=== PATIENT | female | born 1960 | race Caucasian/White ===

== ENCOUNTER 2017-01-04 08:27 | Inpatient (IN) | payer OTHER ==
[2017-01-04] VITALS (9 sets, daily range): BP systolic 107–146; BP diastolic 53–102; PULSE 70–102; RESP 12–18; Ht 154.9 cm; Wt 83.2 kg
[~2017-01-04] VITALS: Ht 154.9 cm; Wt 83.2 kg
[~2017-01-04 08:27] MED LIST: CEFAZOLIN 1 GM INJ ONE; CEFAZOLIN 2 GM/50 ML (PMX) 50 ML IVPB SCH; SOD CHLORIDE 0.9% 1,000 ML IV SCH
[2017-01-04] MEDS ORDERED: AMLO-145 PO (09:29)
[2017-01-04] MEDS ORDERED: PRA20 PO (09:29)
[2017-01-04] MEDS ORDERED: CITA20TA6 PO (09:29)
[2017-01-04] MEDS ORDERED: LISI10TA2 PO (09:29)
[2017-01-04] MEDS ORDERED: BUPIVACAINE 0.25% (MPF) 30 ML INJ ONE (11:05)
[2017-01-04] MEDS ORDERED: MIDAZOLAM 1 MG/ML 2 ML INJ ONE (11:20)
[2017-01-04] MEDS ORDERED: MEPERIDINE 25 MG INJ IV PRN (12:00)
[2017-01-04] MEDS ORDERED: morphine (1 MG/ML) 10ML SYRINGE IV PRN (12:00)
[2017-01-04] MEDS ORDERED: FENTAnyl 50 MCG/ML VIAL IV PRN (12:00)
[2017-01-04] MEDS ORDERED: DIPHENHYDRAMINE 50 MG INJ IV PRN (12:00)
[2017-01-04] MEDS ORDERED: ONDANSETRON 4 MG INJ IV PRN ×2 (12:00→20:30)
[2017-01-04] MEDS ORDERED: ROCURONIUM 50 MG INJ ONE (12:36)
[2017-01-04] MEDS ORDERED: GLYCOPYRROLATE 0.4 MG INJ ONE (12:36)
[2017-01-04] MEDS ORDERED: PROPOFOL 20 ML ONE (12:36)
[2017-01-04] MEDS ORDERED: LIDOCAINE 2% (SDV) 5 ML INJ ONE (12:36)
[2017-01-04] MEDS ORDERED: ONDANSETRON 4 MG INJ ONE (12:37)
[2017-01-04] MEDS ORDERED: NEOSTIGMINE 3 MG/3 ML SYRINGE ONE (12:37)
[2017-01-04] MEDS ORDERED: CEFAZOLIN 2 GM/50 ML (PMX) 50 ML IVPB SCH ×2 (13:00→17:30)
--- NOTE | 2017-01-04 13:26 | OPR ---
DATE OF OPERATION: 01/04/2017 INDICATION: This is a 56-year-old female with symptomatic gallstones. She requests surgical excisi on of her gallbladder. Risks, alternatives, benefits, and personnel were discussed with the patient . The patient expressed understanding and consents to the operation. PREOPERATIVE DIAGNOSIS: Symptomatic gallstones. POSTOPERATIVE DIAGNOSIS: Symptomatic gallstones. OPERATION: Laparoscopic cholecystectomy. SURGEON: Anuja Hendrix MD CASING CREW PUSHER: Simba Guzman MD SPECIMENS: Gallbladder. COMPLICATIONS: None. ANESTHESIA: General. DESCRIPTION OF PROCEDURE: The patient was taken to the OR and prepped and draped in the usual steri le fashion. A surgical time out was performed. IV antibiotics were given. Infraumbilical transver se incision is made with a 15 blade. Dissection cautery was carried down to the fascia which was op ened with a curved Sandoval scissors, 0 Vicryl U-stitch was placed into the fascia. Balloon and Marii trocar were introduced. Pneumoperitoneum was established. Midepigastric 10 mm optical trocar and r ight upper quadrant and right upper flank 5 mm optical trocars placed under direct visualization. U liya initial inspection, there were multiple adhesions to the gallbladder which were taken down blunt ly. The cystic duct was identified. The critical view was established. The cystic duct and cystic artery are divided using multiple fires of the 35 mm [place] vascular load stapler. The gallbladde r was taken off the gallbladder bed. There was good hemostasis. Surgicel snow was used to augment hemostasis. Gallbladder was retrieved using EndoCatch bag. Ports were removed under direct visuali zation. The 0 Vicryl U-stitch was tied down. Skin was closed using skin brayden. Local anesthesia was injected. Dry dressings were applied. Dictated By: ANUJA HENDRIX MD SB/DONTE Conf#: [id number] DID#: [id number]
[2017-01-04] MEDS: morphine 2 MG INJ IV PRN ×3 (14:46→22:54)
[2017-01-04] MEDS ORDERED: HYDROmorphONE 1 MG/ML SYG IV STA (15:29)
[2017-01-04 16:29] LABS: ADD SCAN DIFF NO
[2017-01-04 16:32] LABS: BASOPHILS % 0.2 % (0.0-2.0); EOSINOPHILS % 0.3 % (0.0-7.0); HEMATOCRIT 37.4 % (37.0-47.0); HEMOGLOBIN 12.1 g/dl (12.0-16.0); LYMPHOCYTES # 1.3 10^3/ul (0.8-2.9); LYMPHOCYTES % 10.1 % (15.0-51.0); MEAN CORPUSCULAR HEMOGLOBIN 31.7 pg (29.0-33.0); MEAN CORPUSCULAR HGB CONC 32.4 g/dl (32.0-37.0); MEAN CORPUSCULAR VOLUME 97.9 fl (82.0-101.0); MEAN PLATELET VOLUME 9.9 fl (7.4-10.4); MONOCYTE # 0.5 10^3/ul (0.3-0.9); MONOCYTES % 3.8 % (0.0-11.0); NEUTROPHIL # 11.2 10^3/ul (1.6-7.5); PLATELET COUNT 183 10^3/UL (140-415); RED BLOOD COUNT 3.82 10^6/ul (4.20-5.40); RED CELL DISTRIBUTION WIDTH 13.2 % (11.5-14.5); WHITE BLOOD COUNT 13.2 10^3/ul (4.8-10.8)
[2017-01-04 16:43] LABS: ALBUMIN 3.4 g/dl (3.3-4.9); POTASSIUM 3.8 mmol/L (3.5-5.1)
[2017-01-04 16:45] LABS: CREATININE 0.65 mg/dl (0.44-1.00)
[2017-01-04 16:46] LABS: ALBUMIN/GLOBULIN RATIO 1.21; TOTAL PROTEIN 6.2 g/dl (6.1-8.1)
--- NOTE | 2017-01-04 16:46 | HP ---
DATE OF ADMISSION: 01/04/2017 HISTORY OF PRESENT ILLNESS: The patient is a 56-year-old female with past medical history positive for hypertension, hyperlipidemia, and depression. The patient had symptomatic gallstones. She was evaluated by Dr. Hendrix in general surgery consultation who requested surgical incision of the gallblad zach. The patient was brought to the hospital and underwent laparoscopic cholecystectomy. Postopera tively, the patient experienced significant pain, and the patient is admitted for further evaluation and management to medical/surgical floor. There is no nausea or vomiting and no fever reported. PAST MEDICAL HISTORY: Positive for hypertension, hyperlipidemia, and depression. PAST SURGICAL HISTORY: The patient is status post x2 many years ago. FAMILY HISTORY: Noncontributory. SOCIAL HISTORY: The patient lives at home with her family. The patient denies any tobacco use, den ies any alcohol use, and denies any illicit drug use. ALLERGIES: NO KNOWN ALLERGIES. MEDICATIONS ON ADMISSION: 1. Amlodipine 5 mg p.o. daily. 2. Lisinopril 10 mg p.o. daily. 3. Pravastatin 20 mg p.o. daily. 4. Citalopram 20 mg p.o. daily. REVIEW OF SYSTEMS: A 12-point review of systems is negative unless what mentioned in the HPI. PHYSICAL ASSESSMENT: GENERAL: Well-developed, obese female who currently is awake, alert. VITAL SIGNS: Temperature is 97.4, pulse is 73, blood pressure 135/74, respiratory rate 18, oxygen s aturation 99% on 2 liters nasal cannula. HEENT: Head is atraumatic, normocephalic. Pupils equal, round, reactive to light and accommodation . Oral mucosa is pink and moist. NECK: Supple, no cervical lymphadenopathy, no thyromegaly. CHEST: Lungs clear bilaterally. There are no rhonchi, wheezes, rales noted. CARDIOVASCULAR: Normal S1, S2. No murmurs, gallops, clicks, rubs noted. ABDOMEN: Protuberant, soft, status post surgery with laparoscopic surgical incision intact with ban dages. EXTREMITIES: No edema, clubbing, cyanosis. Pulses equal bilaterally 2+. SKIN: There is no rash or petechiae noted. NEUROLOGICAL: The patient is lethargic but easily arousable. Alert and oriented x3. No focal defi cits noted. Motor strength 5/5 in all extremities. LABORATORY DATA: On admission, basic metabolic panel shows glucose 99, BUN is 17, creatinine 0.79. Sodium 143, potassium 4.6, chloride 106, carbon dioxide 28, calcium 9.6. PTT is 26. INR is 1. PT 9.9. CBC: White blood cells 9.3, hemoglobin is 13.5, hematocrit 38.9, platelets 218. ASSESSMENT AND PLAN: 1. Symptomatic gallstones, status post laparoscopic cholecystectomy. Continue to follow up surgica l recommendations. Continue Tylenol and morphine for pain and Zofran p.r.n. for nausea. The patien t is continued on antibiotics and IV fluids. Monitor electrolytes. Advance diet per surgery. Nubia ntive spirometer q. 1 hour while the patient is awake. 2. Hypertension. We will resume patient's home medication, lisinopril and Norvasc. 3. Hyperlipidemia. Continue Pravachol. 4. Depression. Continue Citalopram. 5. We will continue sequential compression device for deep venous thrombosis prophylaxis. Further recommendations based on clinical course. Plan of care discussed with Dr. Ledesma. Dictated By: AYESHA OREILLY REHABILITATION ASSISTANT for MING LEDESMA MD SR/NTS Conf#: [id number] DID#: [id number]
[2017-01-04 16:47] LABS: CALCIUM 8.2 mg/dl (8.4-10.2)
[2017-01-04] MEDS: CEFAZOLIN 2 GM/50 ML (PMX) 50 ML IVPB SCH (17:38)
[2017-01-04] MEDS: LACTATED RINGER'S 1,000 ML IV SCH ×3 (17:38→22:40)
[2017-01-04] MEDS: HYDROCODONE/APAP (5/325) TAB PO PRN (19:13)
[2017-01-05 00:26] VITALS: RESP 19
[2017-01-05 00:28] VITALS: BP 147/70; PULSE 86
[2017-01-05] MEDS: morphine 2 MG INJ IV PRN ×8 (00:46→20:28)
[2017-01-05] MEDS: CEFAZOLIN 2 GM/50 ML (PMX) 50 ML IVPB SCH ×3 (01:43→11:36)
[2017-01-05] MEDS: HYDROCODONE/APAP (5/325) TAB PO PRN ×3 (04:17→19:28)
[2017-01-05 05:46] LABS: ADD SCAN DIFF NO
[2017-01-05 05:54] LABS: BASOPHILS % 0.2 % (0.0-2.0); HEMATOCRIT 34.5 % (37.0-47.0); HEMOGLOBIN 11.2 g/dl (12.0-16.0); LYMPHOCYTES # 1.4 10^3/ul (0.8-2.9); LYMPHOCYTES % 12.5 % (15.0-51.0); MEAN CORPUSCULAR HEMOGLOBIN 31.5 pg (29.0-33.0); MEAN CORPUSCULAR HGB CONC 32.5 g/dl (32.0-37.0); MEAN CORPUSCULAR VOLUME 97.2 fl (82.0-101.0); MEAN PLATELET VOLUME 10.1 fl (7.4-10.4); MONOCYTE # 0.4 10^3/ul (0.3-0.9); MONOCYTES % 3.5 % (0.0-11.0); NEUTROPHIL # 9.4 10^3/ul (1.6-7.5); NEUTROPHILS % 83.4 % (39.0-77.0); PLATELET COUNT 181 10^3/UL (140-415); RED BLOOD COUNT 3.55 10^6/ul (4.20-5.40); RED CELL DISTRIBUTION WIDTH 13.2 % (11.5-14.5); WHITE BLOOD COUNT 11.3 10^3/ul (4.8-10.8)
[2017-01-05] MEDS: LACTATED RINGER'S 1,000 ML IV SCH ×4 (06:22→18:40)
[2017-01-05 06:52] LABS: ALBUMIN 3.3 g/dl (3.3-4.9)
[2017-01-05 06:53] LABS: POTASSIUM 4.3 mmol/L (3.5-5.1)
[2017-01-05 06:55] LABS: BILIRUBIN,INDIRECT 0.1 mg/dl (0-1.1); BILIRUBIN,TOTAL 0.1 mg/dl (0.2-1.3); CREATININE 0.66 mg/dl (0.44-1.00)
[2017-01-05 06:56] LABS: ALBUMIN/GLOBULIN RATIO 1.22; CALCIUM 8.3 mg/dl (8.4-10.2)
[2017-01-05 07:43] VITALS: BP 104/53; RESP 16
[2017-01-05] MEDS ORDERED: NON-FORMULARY/PATIENT OWN MED (Pravastatin Sodium 20 MG) PO SCH (09:00)
[2017-01-05] MEDS: AMLODIPINE 5 MG TAB PO SCH (09:00)
[2017-01-05] MEDS: CITALOPRAM 20 MG TAB PO SCH (09:00)
[2017-01-05] MEDS: LISINOPRIL 10 MG TAB PO SCH (09:00)
[2017-01-05] MEDS: ATORVASTATIN 10 MG TAB PO SCH (09:55)
--- NOTE | 2017-01-05 11:39 | PN ---
Date/Time of Note Date/Time of Note DATE: 01/05/17 TIME: 11:38 Assessment/Plan VTE Prophylaxis VTE Prophylaxis Intervention: SCD's Lines/Catheters IV Catheter Type (from Nrs): Peripheral IV Urinary Cath still in place: No Assessment/Plan Assessment/Plan 1. Symptomatic gallstones, status post laparoscopic cholecystectomy. Continue to follow up surgical recommendations. Continue Tylenol and morphine for pain and Zofran p.r.n. for nausea. The patient is continued on antibiotics and IV fluids. Monitor electrolytes. Advance diet per surgery. Incentive spirometer q. 1 hour while the patient is awake. 2. Hypertension. We will resume patient's home medication, lisinopril and Norvasc. 3. Hyperlipidemia. Continue Pravachol. 4. Depression. Continue Citalopram. 5. We will continue sequential compression device for deep venous thrombosis prophylaxis. Further recommendations based on clinical course. Plan of care discussed with Dr. Ledesma. Subjective 24 Hr Interval Summary Constitutional: requiring O2 Eyes: no complaints ENT: no complaints Respiratory: no complaints Cardiovascular: no complaints Gastrointestinal: pain Genitourinary: no complaints Musculoskeletal: no complaints Skin: other Neurologic: no complaints Endocrine: no complaints Lymphatic: no complaints Immunologic: no complaints Exam/Review of Systems Vital Signs Vitals Vital Signs Date Time Temp Pulse Resp B/P Pulse Ox O2 Delivery O2 Flow Rate FiO2 01/05/17 07:43 98.5 69 16 104/53 98 01/05/17 00:26 Nasal Cannula 2.0 Intake and Output 01/04/17 01/04/17 01/05/17 15:00 23:00 07:00 Intake Total 1000 ml 50 ml 1050 ml Output Total 300 ml 50 ml 300 ml Balance 700 ml 0 ml 750 ml Exam Constitutional: alert, oriented, well developed Head: atraumatic Eyes: EOMI, PERRL, nl sclera ENMT: nl external ears & nose Neck: non-tender Respiratory: clear to auscultation Cardiovascular: nl pulses Gastrointestinal: non-tender, other (incional pain, DDI), soft Neurological: nl mental status, nl speech Skin: other Results Result Diagram: 01/05/17 0459 01/05/17 0459 Results 24 hrs Laboratory Tests Test 01/04/17 15:50 01/05/17 04:59 Alanine Aminotransferase (ALT/SGPT) 83 H 306 H Albumin 3.4 3.3 Albumin/Globulin Ratio 1.21 1.22 Alkaline Phosphatase 66 85 Anion Gap 16 12 Aspartate Amino Transf (AST/SGOT) 106 H 275 H Basophils # 0.0 0.0 Basophils % 0.2 0.2 Blood Urea Nitrogen 17 13 Calcium Level 8.2 L 8.3 L Carbon Dioxide Level 23 28 Chloride Level 109 105 Creatinine 0.65 0.66 Direct Bilirubin 0.00 0.00 Eosinophils # 0.0 0.0 Eosinophils % 0.3 0.0 Globulin 2.80 2.70 Glucose Level 139 129 Hematocrit 37.4 34.5 L Hemoglobin 12.1 11.2 L Indirect Bilirubin 0.0 0.1 Lymphocytes # 1.3 1.4 Lymphocytes % 10.1 L 12.5 L Mean Corpuscular Hemoglobin 31.7 31.5 Mean Corpuscular Hemoglobin Concent 32.4 32.5 Mean Corpuscular Volume 97.9 97.2 Mean Platelet Volume 9.9 10.1 Monocytes # 0.5 0.4 Monocytes % 3.8 3.5 Neutrophils # 11.2 H 9.4 H Neutrophils % 85.0 H 83.4 H Nucleated Red Blood Cells # 0.0 0.0 Nucleated Red Blood Cells % 0.0 0.0 Platelet Count 183 181 Potassium Level 3.8 4.3 Red Blood Count 3.82 L 3.55 L Red Cell Distribution Width 13.2 13.2 Sodium Level 144 141 Total Bilirubin 0.0 L 0.1 L Total Protein 6.2 6.0 L White Blood Count 13.2 H 11.3 H Medications Medications Current Medications Morphine Sulfate (morphine) 2 mg Q2H PRN IV PAIN LEVEL 6-10 Last administered on 01/05/17 08:41; Admin Dose 2 MG; Start 01/04/17 at 13:00 Acetaminophen/ Hydrocodone Bitart 1 tab 1 tab Q6H PRN PO PAIN LEVEL 6-10 Last administered on 01/05/17 10:22; Admin Dose 1 TAB; Start 01/04/17 at 13:00 Lactated Ringer's (Lr) 1,000 ml @ 100 mls/hr Q10H IV Last administered on 01/05 06:22; Admin Dose 100 MLS/HR; Start 01/04/17 at 12:40 Amlodipine Besylate (Norvasc) 5 mg DAILY PO ; Start 01/05/17 at 09:00 Citalopram Hydrobromide (Celexa) 20 mg DAILY PO ; Start 01/05/17 at 09:00 Lisinopril (Zestril) 10 mg DAILY PO ; Start 01/05/17 at 09:00 Atorvastatin Calcium 10 mg 10 mg DAILY PO Last administered on 01/05/17 09:55 ; Admin Dose 10 MG; Start 01/05/17 at 09:00 Cefazolin Sodium/ Dextrose (Ancef 2 Gm/50 ml (Pmx)) 50 ml @ 100 mls/hr Q8H IVPB Last administered on 01/05/17 01:43; Admin Dose 100 MLS/HR; Start at 17:30; Stop 01/05/17 at 17:29 Ondansetron HCl (Zofran Inj) 4 mg Q4H PRN IV NAUSEA AND/OR VOMITING; Start 08/13 at 20:30 JUDY MARTÍNEZ Jan 05, 2017 11:39
--- NOTE | 2017-01-05 14:27 | PN ---
DATE: 01/05/2017 Postop day #1. SUBJECTIVE: Complains of too much abdominal pain. She is getting morphine every 2 to 3 hours aroun d the clock. No vomiting. No flatus. Has not been out of bed, she is in bed. OBJECTIVE: VITAL SIGNS: Temperature 98.5, pulse rate 69 to 86, respirations 18 to 16, blood pressure 147/70 an d 104/53, saturation 98% on 2 liters nasal cannula. ABDOMEN: Upper part of the abdomen especially in the epigastric area and left and right upper quadr ants very distended with gas. Bowel sounds in lower abdomen are 3+, upper abdomen is absent. LOWER EXTREMITIES: No pitting edema, no calf tenderness. Sequential compression devices around the legs. LABORATORY DATA: WBC 11,300, hemoglobin 11.2, hematocrit 34.5, neutrophils 83%, elevated. Chemistr y: BUN and creatinine are normal. Sodium and potassium are normal. Total bilirubin is 0.1. AST el evated 275, ALT elevated 306. ASSESSMENT: 1. Postop day #1. The patient has too much pain. 2. Does not have any appetite. 3. The abdomen is very distended, appears to be distended with gas. I am not sure if this is in th e transverse colon or is in the stomach. Enzymes are elevated, SGOT, AST and ALT are elevated due t o probably cauterization of the slight bleeding which was in the gallbladder fossa. PLAN: 1. Get a stat KUB to evaluate for the presence of gas. 2. Keep the patient n.p.o. except ice chips. 3. Repeat CBC and electrolytes tomorrow morning. Dictated By: MARIBEL JAMA MD PS/NTS Conf#: [id number] DID#: [id number]
--- NOTE | 2017-01-05 19:13 | RADRPT ---
PROCEDURE: XR Abdomen. CLINICAL INDICATION: Abdominal pain and distension. Postop. TECHNIQUE: Two views of the abdomen are available for review. COMPARISON: None. FINDINGS: The bowel gas pattern is unremarkable. There is no evidence of obstruction. There are no abnormal ca lcifications overlying the urinary tracts. The osseous structures are remarkable for degenerative sp ondylosis of the spine. Scattered skin brayden are seen along the anterior abdominal wall. IMPRESSION: 1. Unremarkable abdomen x-ray series. 2. No evidence for bowel distension or obstruction or free intraperitoneal air. RPTAT: PP .Bahman Lezama MD, Date Time Electronically viewed and signed by .Bahman Lezama MD, on 01/05/2017 19:13 .B/
[2017-01-05 19:28] VITALS: BP 103/53; PULSE 73; RESP 20
[2017-01-06] MEDS: morphine 2 MG INJ IV PRN (00:06)
[2017-01-06] MEDS: HYDROCODONE/APAP (5/325) TAB PO PRN ×3 (03:39→18:00)
[2017-01-06] MEDS: LACTATED RINGER'S 1,000 ML IV SCH (05:35)
[2017-01-06 05:40] LABS: ADD SCAN DIFF NO
[2017-01-06 05:55] LABS: BASOPHILS % 0.3 % (0.0-2.0); EOSINOPHILS # 0.1 10^3/ul (0.0-0.5); EOSINOPHILS % 0.5 % (0.0-7.0); HEMATOCRIT 29.6 % (37.0-47.0); HEMOGLOBIN 9.5 g/dl (12.0-16.0); LYMPHOCYTES # 2.5 10^3/ul (0.8-2.9); LYMPHOCYTES % 25.6 % (15.0-51.0); MEAN CORPUSCULAR HEMOGLOBIN 31.1 pg (29.0-33.0); MEAN CORPUSCULAR HGB CONC 32.1 g/dl (32.0-37.0); MEAN PLATELET VOLUME 10.2 fl (7.4-10.4); MONOCYTE # 0.5 10^3/ul (0.3-0.9); MONOCYTES % 5.5 % (0.0-11.0); NEUTROPHIL # 6.5 10^3/ul (1.6-7.5); NEUTROPHILS % 67.7 % (39.0-77.0); PLATELET COUNT 163 10^3/UL (140-415); RED BLOOD COUNT 3.05 10^6/ul (4.20-5.40); RED CELL DISTRIBUTION WIDTH 13.4 % (11.5-14.5); WHITE BLOOD COUNT 9.6 10^3/ul (4.8-10.8)
[2017-01-06 06:04] LABS: POTASSIUM 3.8 mmol/L (3.5-5.1)
[2017-01-06 06:06] LABS: CREATININE 0.66 mg/dl (0.44-1.00)
[2017-01-06 06:07] LABS: CALCIUM 8.3 mg/dl (8.4-10.2)
[2017-01-06 07:23] VITALS: BP 103/52; RESP 18
[2017-01-06] MEDS: ATORVASTATIN 10 MG TAB PO SCH (10:12)
[2017-01-06] MEDS: AMLODIPINE 5 MG TAB PO SCH (10:12)
[2017-01-06] MEDS: CITALOPRAM 20 MG TAB PO SCH (10:13)
[2017-01-06] MEDS: LISINOPRIL 10 MG TAB PO SCH (10:13)
--- NOTE | 2017-01-06 11:53 | PN ---
Date/Time of Note Date/Time of Note DATE: 01/06/17 TIME: 11:49 Assessment/Plan VTE Prophylaxis VTE Prophylaxis Intervention: SCD's Lines/Catheters IV Catheter Type (from Nrsg): Peripheral IV Urinary Cath still in place: No Assessment/Plan Assessment/Plan 1. Symptomatic gallstones, status post laparoscopic cholecystectomy. - per surgery - Tylenol and morphine for pain - Zofran p.r.n. for nausea. - antibiotics and IV fluids. - Monitor electrolytes. - Advance diet per surgery. - Incentive spirometer q. 1 hour while the patient is awake. 2. Hypertension. We will resume patient's home medication, lisinopril and Norvasc. 3. Hyperlipidemia. Continue Pravachol. 4. Depression. Continue Citalopram. 5. Sequential compression device for deep venous thrombosis prophylaxis. Further recommendations based on clinical course. Plan of care discussed with Dr. Ledesma/ staff/patient. Subjective 24 Hr Interval Summary Constitutional: requiring IVF Eyes: no complaints ENT: no complaints, pain Cardiovascular: no complaints Gastrointestinal: pain Genitourinary: no complaints Musculoskeletal: no complaints Skin: other Neurologic: no complaints Endocrine: no complaints Lymphatic: no complaints Psychological: no complaints Immunologic: no complaints Exam/Review of Systems Vital Signs Vitals Vital Signs Date Time Temp Pulse Resp B/P Pulse Ox O2 Delivery O2 Flow Rate FiO2 01/06/17 07:23 99.3 79 18 103/52 96 01/05/17 20:00 Nasal Cannula 2.0 Intake and Output 01/05/17 01/05/17 01/06/17 15:00 23:00 07:00 Intake Total 50 ml 1600 ml 1360 ml Output Total 400 ml 650 ml Balance 50 ml 1200 ml 710 ml Exam Constitutional: alert, oriented, well developed Psych: nl mood/affect Head: atraumatic Eyes: EOMI ENMT: nl external ears & nose Neck: non-tender Respiratory: clear to auscultation Cardiovascular: nl pulses Gastrointestinal: distended, other, soft, tender (post op- [place]in[place] pain) Musculoskeletal: nl extremities to inspection Extremities: normal pulses Neurological: nl mental status Skin: other Lymph: nontender Results Result Diagram: 01/06/17 0441 01/06/17440 Results 24 hrs Laboratory Tests Test 01/06/17 04:41 Anion Gap 11 Basophils # 0.0 Basophils % 0.3 Blood Urea Nitrogen 9 Calcium Level 8.3 L Carbon Dioxide Level 29 Chloride Level 104 Creatinine 0.66 Eosinophils # 0.1 Eosinophils % 0.5 Glucose Level 110 Hematocrit 29.6 L Hemoglobin 9.5 L Lymphocytes # 2.5 Lymphocytes % 25.6 Mean Corpuscular Hemoglobin 31.1 Mean Corpuscular Hemoglobin Concent 32.1 Mean Corpuscular Volume 97.0 Mean Platelet Volume 10.2 Monocytes # 0.5 Monocytes % 5.5 Neutrophils # 6.5 Neutrophils % 67.7 Nucleated Red Blood Cells # 0.0 Nucleated Red Blood Cells % 0.0 Platelet Count 163 Potassium Level 3.8 Red Blood Count 3.05 L Red Cell Distribution Width 13.4 Sodium Level 140 White Blood Count 9.6 Medications Medications Current Medications Morphine Sulfate (morphine) 2 mg Q2H PRN IV PAIN LEVEL 6-10 Last administered on 01/06/17 00:06; Admin Dose 2 MG; Start 01/04/17 at 13:00 Acetaminophen/ Hydrocodone Bitart 1 tab 1 tab Q6H PRN PO PAIN LEVEL 6-10 Last administered on 01/06/17 10:19; Admin Dose 1 TAB; Start 01/04/17 at 13:00 Lactated Ringer's (Lr) 1,000 ml @ 100 mls/hr Q10H IV Last administered on 01/06 05:35; Admin Dose 100 MLS/HR; Start 01/04/17 at 12:40 Amlodipine Besylate (Norvasc) 5 mg DAILY PO Last administered on 01/06/17 10: 12; Admin Dose 5 MG; Start 01/05/17 at 09:00 Citalopram Hydrobromide (Celexa) 20 mg DAILY PO Last administered on 01/06/17 10:13; Admin Dose 20 MG; Start 01/05/17 at 09:00 Lisinopril (Zestril) 10 mg DAILY PO Last administered on 01/06/17 10:13; Admin Dose 10 MG; Start 01/05/17 at 09:00 Atorvastatin Calcium (Lipitor) 10 mg DAILY PO Last administered on 01/06/17 10 :12; Admin Dose 10 MG; Start 01/05/17 at 09:00 Ondansetron HCl (Zofran Inj) 4 mg Q4H PRN IV NAUSEA AND/OR VOMITING Last administered on 01/05/17t 20:12; Admin Dose 4 MG; Start 01/04/17 at 20:30 JUDY MARTÍNEZ Jan 06, 2017 11:53
[2017-01-06] MEDS ORDERED: DEXTROSE 5%-0.45% NACL 1,000 ML IV SCH (12:00)
[2017-01-06] MEDS ORDERED: AL HYDROX/MG HYDROX/SIMETH 30 ML CUP PO PRN (12:00)
[2017-01-06] MEDS ORDERED: PANTOPRAZOLE (EC) 40 MG TAB PO ONE (12:00)
--- NOTE | 2017-01-06 15:25 | PN ---
DATE: Postop day #2 SUBJECTIVE: Feels better, passed gas in the afternoon. No nausea, no vomiting. Has been on clear liquid diet. OBJECTIVE GENERAL: Awake, alert, oriented x3, lying down in the bed. VITAL SIGNS: Temperature 99.3, heart rate 79, respirations 18, blood pressure 103/52, saturation 96 % on 2 liters of nasal cannula. ABDOMEN: Distended and the upper part of the abdomen is distended completely with mild tenderness. Bowel sounds was 4+ all over. While I was examining the patient, the patient had passed gas. EXTREMITIES: Legs no calf tenderness. LABORATORY DATA: Today WBC dropped to 9600, normal, with normal differential with 67%. Hemoglobin 9.5, hematocrit 29.6. Chemistry: Sodium, potassium, BUN, creatinine within normal limits. Liver f unction test has not been tested. ASSESSMENT: Status post laparoscopic cholecystectomy, postop day #2. The patient was kept last nig ht because of the severe distention, we got a KUB and KUB was read by Dr. Bahman Lezama, stating there is no evidence of distention of the colon or obstruction, but when I see the x-ray, there is some b ubble in the stomach area, so probably partial gastric dilatation. PLAN: 1. Start the patient on full liquid diet today. If tolerates, the patient can be discharged home t [place], afternoon or early evening. Discussed with nurse and instructions were given. Follow up by Leda Hendrix in the office. Patient needs [place] pain medication to take home. Dictated By: MARIBEL SPENCER/DONTE Conf#: [id number] DID#: [id number]
--- NOTE | 2017-01-06 19:07 | PDOCDIS ---
Discharge Instructions CONDITION Patient Condition: Stable HOME CARE INSTRUCTIONS: Diet Instructions: ACTIVITY: Activity Restrictions: Slowly Increase Activity Rest between Activity Avoid heavy lifting Do not operate Machinery Do not operate Power Tool Avoid Heavy Housework FOLLOW UP/APPOINTMENTS Appointments FU with Primary MD X [address] Hendrix as recommended Call 911 or go to the [facility] if symptoms worsen.Juan Ledesma/staff/ patient JUDY MARTÍNEZ Jan 06, 2017 19:07
[2017-01-06] MEDS ORDERED: DOCU-144 PO (19:09)
[2017-01-06] MEDS ORDERED: PANT40TA4 PO (19:09)
[2017-01-06] MEDS ORDERED: HYDR-3498 PO (19:09)
[2017-01-06 19:23] VITALS: BP 105/52; RESP 22
[2017-01-06] MEDS ORDERED: HYDROCODONE/APAP (5/325) TAB PO ONE (21:00)
[2017-01-07] MEDS ORDERED: PANTOPRAZOLE (EC) 40 MG TAB PO SCH (06:00)
== END 2017-01-06 22:00 | disposition home or self-care (01) | DRG 419 ==
LOC: SDS 08:27 → MS2 12:42 → OBSVTOIN 01-06 12:45
PROVIDERS: ADMIT Internal Medicine; ATTEND Surgery
PROC: 0FT44ZZ Resection of Gallbladder, Percutaneous Endoscopic Approach (ICD-10-PCS; principal; 2017-01-04 10:30)
DX: K80.20 Calculus of gallbladder without cholecystitis without obstruction (principal); I10 Essential (primary) hypertension; E78.5 Hyperlipidemia, unspecified; F32.9 Major depressive disorder, single episode, unspecified; R14.0 Abdominal distension (gaseous)
CPT/HCPCS: 74000; 80048; 80053; 85025; 88304; A4310; G0378; J0690; J1170; J2250; J2270; J2405; J2710; J3010; J7042; J7120